=== PATIENT | female | born 1985 | race African-American/Black ===

== ENCOUNTER 2020-05-03 16:25 | Emergency (ER) | payer MEDICAID, OTHER ==
[~2020-05-03] VITALS: Ht 167.6 cm; Wt 110.0 kg
[2020-05-03] MEDS ORDERED: SODIUM CHLORIDE 0.9% 1,000 ML IV ONE (17:17)
[2020-05-03 17:55] LABS: CHLORIDE 113 mEq/L (98-107)
[2020-05-03 17:56] LABS: CLARITY URINE CLOUDY (CLEAR); COLOR URINE YELLOW (YELLOW); KETONES URINE NEGATIVE (NEGATIVE); LEUKOCYTE ESTERASE URINE 2+ (NEGATIVE); NITRITE URINE POSITIVE (NEGATIVE); OCCULT BLOOD URINE NEGATIVE (NEGATIVE); PH URINE 6.5 (4.5-8.0); PROTEIN URINE NEGATIVE (NEGATIVE); SPECIFIC GRAVITY URINE 1.016 (1.005-1.030)
[2020-05-03 18:02] LABS: BASOPHILS % 0.7 % (0.0-2.0); HEMATOCRIT. 40.4 % (36.0-48.0); LYMPHOCYTES % 17.5 % (20.0-50.0); MEAN CORPUSCULAR HEMOGLOBIN 27.7 pg (28.0-32.0); MEAN CORPUSCULAR VOLUME 85.7 fL (81.0-99.0); MEAN PLATELET VOLUME 8.7 fl (7.4-10.4); MONOCYTES % 9.3 % (2.0-8.0); NEUTROPHILS % 71.5 % (40.0-76.0); PLATELET 320 x1000/uL (130-400); RED BLOOD CELL COUNT 4.71 mill/uL (4.2-5.4); RED CELL DISTRIBUTION WIDTH 14.2 % (11.6-14.6)
[2020-05-03 18:12] LABS: *AMPHETAMINES SCREEN URINE NEGATIVE (NEGATIVE)
[2020-05-03 18:13] LABS: *BARBITURATES SCREEN URINE NEGATIVE (NEGATIVE); *BENZODIAZEPINES SCREEN URINE NEGATIVE (NEGATIVE); *COCAINE SCREEN URINE NEGATIVE (NEGATIVE); CANNABINOID URINE SCREEN NEGATIVE (NEGATIVE); METHADONE URINE SCREEN NEGATIVE (NEGATIVE); OPIATES URINE SCREEN NEGATIVE (NEGATIVE); PHENCYCLIDINE URINE SCREEN NEGATIVE (NEGATIVE)
[2020-05-03] MEDS ORDERED: CEFTRIAXONE 1 G PREMIX 50 ML IV ONE (18:45)
[2020-05-03 20:00] VITALS: BP 127/85
== END 2020-05-03 20:19 | disposition home or self-care (01) ==
LOC: ER 16:25
DX: R55 Syncope and collapse (principal); N39.0 Urinary tract infection, site not specified; R03.0 Elevated blood-pressure reading, without diagnosis of hypertension
CPT/HCPCS: 36415; 71045; 80053; 80305; 81003; 81025; 85025; 93005; 96361; 96374; 99285; J0696; J7030

== ENCOUNTER 2024-07-05 10:45 | Emergency (ER) | payer MEDICAID, OTHER ==
[~2024-07-05] VITALS: Ht 165.1 cm; Wt 109.0 kg
[2024-07-05 10:47] VITALS: O2SAT 100
[2024-07-05 10:57] VITALS: BP 154/99; PULSE 89; RESP 16; TEMP 98.5; O2SAT 100
[2024-07-05] MEDS: KETOROLAC 30MG/ML VIAL IM ONE (12:00)
== END 2024-07-05 13:14 | disposition home or self-care (01) ==
LOC: ER 10:45
DX: B34.9 Viral infection, unspecified (principal); R51.9 Headache, unspecified; Z98.890 Other specified postprocedural states; Z87.442 Personal history of urinary calculi
CPT/HCPCS: 99283; 96372; J1885

== ENCOUNTER 2024-07-19 20:50 | Emergency (ER) | payer MEDICAID ==
[~2024-07-19] VITALS: Ht 165.1 cm; Wt 109.0 kg
[2024-07-19 20:56] VITALS: O2SAT 100
[2024-07-19 21:23] LABS: CLARITY URINE TURBID (CLEAR); COLOR URINE YELLOW (YELLOW); GLUCOSE URINE NEGATIVE (NEGATIVE); KETONES URINE TRACE (NEGATIVE); LEUKOCYTE ESTERASE URINE 1+ (NEGATIVE); NITRITE URINE POSITIVE (NEGATIVE); OCCULT BLOOD URINE NEGATIVE (NEGATIVE); PROTEIN URINE 1+ (NEGATIVE); SPECIFIC GRAVITY URINE 1.026 (1.005-1.030); UROBILINOGEN URINE 0.2 E.U./dL (0.2-1.0)
[2024-07-19 21:50] LABS: BACTERIA URINE 3+; RBC URINE 0-2 /hpf (0-2); SQUAMOUS EPITHELIAL CELL URINE 2+ /lpf (RARE/1+)
[2024-07-19 21:59] LABS: BASOPHILS % 0.3 % (0.0-2.0); EOSINOPHILS % 0.1 % (0.0-5.0); HEMATOCRIT. 41.1 % (36.0-48.0); LYMPHOCYTES % 11.8 % (20.0-50.0); MEAN CORPUSCULAR HEMOGLOBIN 27.5 pg (28.0-32.0); MEAN CORPUSCULAR HGB CONC 31.7 g/dL (31.0-37.0); MEAN CORPUSCULAR VOLUME 86.8 fL (81.0-99.0); MEAN PLATELET VOLUME 8.5 fl (7.4-10.4); MONOCYTES % 8.1 % (2.0-8.0); NEUTROPHILS % 79.7 % (40.0-76.0); PLATELET 283 x1000/uL (130-400); RED BLOOD CELL COUNT 4.73 mill/uL (4.2-5.4); WHITE BLOOD COUNT 6.5 x1000/uL (4.5-11.0)
[2024-07-19 22:03] LABS: CHLORIDE 104 mEq/L (98-107); POTASSIUM 3.4 mEq/L (3.5-5.1); SODIUM 135 mEq/L (136-145)
[2024-07-19 22:04] LABS: CALCIUM 9.3 mg/dL (8.7-10.4); CARBON DIOXIDE 24 mEq/L (21-32)
[2024-07-19 22:09] LABS: CREATININE 0.8 mg/dL (0.6-1.0); GLUCOSE 99 mg/dL (70-105); UREA NITROGEN BLOOD 10 mg/dL (9-23)
[2024-07-19 22:11] LABS: ALANINE AMINOTRANSFERASE 9 IU/L (10-49); ASPARTATE AMINOTRANSFERASE 17 IU/L (<34); BILIRUBIN DIRECT 0.1 mg/dL (<=3.0); BILIRUBIN TOTAL 0.5 mg/dL (0.1-1.0)
[2024-07-19] MEDS ORDERED: SULF1TAB48 MT (23:47)
[2024-07-20 00:33] VITALS: BP 126/85; PULSE 95; RESP 18; TEMP 37.44744; O2SAT 100
[2024-07-20] MEDS: ONDANSETRON 4MG ODT PO ONE (00:48)
== END 2024-07-20 00:55 | disposition home or self-care (01) ==
LOC: ER 20:50
DX: N39.0 Urinary tract infection, site not specified (principal); N12 Tubulo-interstitial nephritis, not specified as acute or chronic; R11.2 Nausea with vomiting, unspecified; R19.7 Diarrhea, unspecified; Z87.442 Personal history of urinary calculi
CPT/HCPCS: 99283; 80076; 80048; 81003; 81025; 83690; 85025; 36415; Q0162

== ENCOUNTER 2025-01-17 11:47 | Emergency (ER) | payer MEDICAID ==
[~2025-01-17] VITALS: Ht 165.1 cm; Wt 107.0 kg
[~2025-01-17 11:47] MED LIST: SULF1TAB48 MT
[2025-01-17 12:00] VITALS: TEMP 36.9; O2SAT 99
[2025-01-17 12:58] LABS: BASOPHILS % 0.6 % (0.0-2.0); EOSINOPHILS % 1.7 % (0.0-5.0); HEMATOCRIT. 39.7 % (36.0-48.0); HEMOGLOBIN. 12.7 g/dL (12.0-16.0); LYMPHOCYTES % 27.5 % (20.0-50.0); MEAN CORPUSCULAR HEMOGLOBIN 27.3 pg (28.0-32.0); MEAN CORPUSCULAR VOLUME 85.5 fL (81.0-99.0); MEAN PLATELET VOLUME 8.6 fl (7.4-10.4); NEUTROPHILS % 62.2 % (40.0-76.0); PLATELET 316 x1000/uL (130-400); RED BLOOD CELL COUNT 4.64 mill/uL (4.2-5.4); RED CELL DISTRIBUTION WIDTH 13.5 % (11.6-14.6); WHITE BLOOD COUNT 6.2 x1000/uL (4.5-11.0)
[2025-01-17 12:59] LABS: CHLORIDE 104 mEq/L (98-107); POTASSIUM 3.7 mEq/L (3.5-5.1); SODIUM 139 mEq/L (136-145)
[2025-01-17 13:00] LABS: CARBON DIOXIDE 28 mEq/L (21-32)
[2025-01-17 13:01] LABS: CALCIUM 9.9 mg/dL (8.7-10.4)
[2025-01-17 13:04] LABS: PROTHROMBIN TIME 10.6 sec (9.6-11.0)
[2025-01-17 13:05] LABS: CREATININE 0.8 mg/dL (0.6-1.0); GLUCOSE 88 mg/dL (70-105); HCG SCREEN NEGATIVE
[2025-01-17 13:06] LABS: UREA NITROGEN BLOOD 11 mg/dL (9-23)
[2025-01-17 13:07] LABS: ALANINE AMINOTRANSFERASE < 7 IU/L (10-49); ALBUMIN 4.5 g/dL (3.2-4.8); ASPARTATE AMINOTRANSFERASE 12 IU/L (<34)
[2025-01-17 13:08] LABS: BILIRUBIN DIRECT < 0.1 mg/dL (<=3.0); BILIRUBIN TOTAL 0.3 mg/dL (0.1-1.0); PROTEIN TOTAL 7.3 g/dL (6.0-8.3)
[2025-01-17 13:09] LABS: CLARITY URINE CLEAR (CLEAR); COLOR URINE YELLOW (YELLOW); GLUCOSE URINE NEGATIVE (NEGATIVE); KETONES URINE NEGATIVE (NEGATIVE); LEUKOCYTE ESTERASE URINE 1+ (NEGATIVE); NITRITE URINE NEGATIVE (NEGATIVE); OCCULT BLOOD URINE TRACE (NEGATIVE); PH URINE 5.5 (4.5-8.0); PROTEIN URINE NEGATIVE (NEGATIVE); SPECIFIC GRAVITY URINE 1.025 (1.005-1.030); UROBILINOGEN URINE 0.2 E.U./dL (0.2-1.0)
[2025-01-17 13:22] LABS: BACTERIA URINE TRACE; RBC URINE 0-2 /hpf (0-2); SQUAMOUS EPITHELIAL CELL URINE 2+ /lpf (RARE/1+)
[2025-01-17 13:23] LABS: YEAST URINE NONE SEEN
[2025-01-17] MEDS ORDERED: NAPR-1494 MT (14:12)
[2025-01-17] MEDS ORDERED: TAMS-54 PO (14:12)
[2025-01-17 14:30] VITALS: BP 131/80; PULSE 88; RESP 16; O2SAT 100
== END 2025-01-17 14:28 | disposition home or self-care (01) ==
LOC: ER 11:47
DX: N20.0 Calculus of kidney (principal); I10 Essential (primary) hypertension; Z79.1 Long term (current) use of non-steroidal anti-inflammatories (NSAID); Z79.899 Other long term (current) drug therapy
CPT/HCPCS: 36415; 74176; 80048; 80076; 81003; 81025; 84703; 85025; 99284

== ENCOUNTER 2025-01-22 17:09 | Emergency (ER) | payer MEDICAID ==
[~2025-01-22] VITALS: Ht 165.1 cm; Wt 108.0 kg
[~2025-01-22 17:09] MED LIST changes: +NAPR-1494 MT; +TAMS-54 PO
[2025-01-22 17:15] VITALS: O2SAT 98
[2025-01-22 18:24] LABS: CLARITY URINE TURBID (CLEAR); COLOR URINE DARK YELLOW (YELLOW); GLUCOSE URINE NEGATIVE (NEGATIVE); KETONES URINE 1+ (NEGATIVE); LEUKOCYTE ESTERASE URINE 2+ (NEGATIVE); NITRITE URINE NEGATIVE (NEGATIVE); OCCULT BLOOD URINE NEGATIVE (NEGATIVE); PROTEIN URINE 1+ (NEGATIVE); SPECIFIC GRAVITY URINE 1.032 (1.005-1.030)
[2025-01-22 19:04] LABS: BACTERIA URINE 1+; RBC URINE 0-2 /hpf (0-2); SQUAMOUS EPITHELIAL CELL URINE 1+ /lpf (RARE/1+); WBC URINE 25-50 /hpf (0-2)
[2025-01-22] MEDS ORDERED: NITR-87 MT (21:38)
[2025-01-22] MEDS ORDERED: IBUPROFEN 800MG TABLET PO ONE (21:45)
[2025-01-22] MEDS ORDERED: TRAM50TA3 MT (22:01)
[2025-01-22 22:12] VITALS: TEMP 37; O2SAT 100
[2025-01-22 22:14] VITALS: BP 129/89; PULSE 86; RESP 12
[2025-01-22] MEDS: ONDANSETRON 4MG ODT PO ONE (22:14)
[2025-01-22] MEDS: ACETAMINOPHEN 325MG TABLET PO ONE (22:14)
[2025-01-22] MEDS: IBUPROFEN 800MG TABLET PO SCH (22:14)
== END 2025-01-22 22:18 | disposition home or self-care (01) ==
LOC: ER 17:09
DX: N12 Tubulo-interstitial nephritis, not specified as acute or chronic (principal); Z79.1 Long term (current) use of non-steroidal anti-inflammatories (NSAID); Z79.899 Other long term (current) drug therapy; Z98.890 Other specified postprocedural states; Z88.8 Allergy status to other drugs, medicaments and biological substances
CPT/HCPCS: 99284; 81003; 81025; 87086; 87077; Q0162